=== PATIENT | female | born 1970 | race Two or more races ===

== ENCOUNTER 2017-12-21 18:49 | Emergency (ER) | payer MEDICAID ==
--- NOTE | 2017-12-21 19:01 | NUR ---
called to triage, no response
--- NOTE | 2017-12-21 19:07 | NUR ---
CALLED TO TRIAGE NO RESPONSE.
== END 2017-12-21 23:29 | disposition left against medical advice (07) ==
LOC: ER 19:04
DX: Z53.21 Procedure and treatment not carried out due to patient leaving prior to being seen by health care provider (principal)